=== PATIENT | male | born 1950 | race Caucasian/White ===

== ENCOUNTER → 2016-10-12 | Outpatient (CLI) | payer MEDICARE ==
--- NOTE | 2016-10-13 07:56 | XR ---
EXAMINATION TYPE: XR chest 2V DATE OF EXAM: 10/12/2016 10:58 AM COMPARISON: 10/05/2010 HISTORY: Cough FINDINGS: The lungs are clear and there is no pneumothorax, pleural effusion, or focal pneumonia. Hyperinflati on suggests COPD. Postsurgical change overlying the cervical spine. Hypertrophic change of the spine noted. Arthropathy of the shoulders. IMPRESSION: 1. No acute process.
== END | disposition home or self-care (01) ==
LOC: RADXRYALE 10:29
PROVIDERS: ATTEND Physician Assistant Medical
DX: R05 Cough (principal)
CPT/HCPCS: 71020

== ENCOUNTER → 2016-10-18 | Outpatient (CLI) | payer MEDICARE ==
--- NOTE | 2016-10-18 13:05 | MR ---
EXAMINATION TYPE: MR cervical spine wo/w con DATE OF EXAM: 10/18/2016 11:16 AM COMPARISON: Prior MR cervical spine dated 17 January 2014 HISTORY: Neck pain, M54.2, M50.3 TECHNIQUE: Multiplanar, multisequence images of the cervical spine were acquired utilizing 19 mL intravenous Mul tiHance gadolinium contrast. Diffusion weighted imaging was performed. C2-C3: No evidence for degenerative disc disease. No disc bulge/herniation or protrusion. No Canal stenosis. Foramina are patent bilaterally. C3-C4: No evidence for degenerative disc disease. No disc bulge/herniation or protrusion. No Canal stenosis. Foramina are patent bilaterally. C4-C5: Bilateral foraminal encroachment due to lateral extension endplate disc complex as on prior ex am. Posterior circumferential endplate disc complex extension causes minimal anterior mass effect on the thecal sac. C5-C6: Lateral extension of endplate disc complex causes some compromise of the right-sided neural fo ramen as on prior exam, correlate for right C6 radiculopathy. No other significant interval change. C6-C7: Stable appearance with a small central posterior disc herniation suspected, this may represent endplate bone formation rather than disc herniation may contact the anterior cervical cord. No signi ficant central canal stenosis. C7-T1: Broad-based posterior disc bulge causes minimal anterior mass effect on the thecal sac. No sig nificant central canal stenosis. Patient is status post anterior cervical fusion and discectomy as previously described at C5-C7. [place] llic susceptibility artifact is present. Disc spaces are stable. There may be a spinal curvature in t he thoracic spine. Cervical spinal cord is of normal signal. Craniovertebral junction relationships are within normal limits. IMPRESSION: Essentially stable exam. Multilevel foraminal encroachment. Central disc herniation C6-7. Postop arrington ges.
== END | disposition home or self-care (01) ==
LOC: RADMRIMAIN 10:36
PROVIDERS: ATTEND Family Medicine
DX: M50.223 Other cervical disc displacement at C6-C7 level (principal)
CPT/HCPCS: 72156; A9577

== ENCOUNTER 2016-12-09 10:26 | Day surgery (SDC) | payer MEDICARE ==
[2016-12-07 08:23] VITALS: BMI 27.4
[~2016-12-09 10:26] MED LIST: LACTATED RINGERS 1,000 ML IV SCH; LIDOCAINE 1% 20 ML VIAL (10MG/ML) FOR IV START INTRADERMA PRN
[2016-12-09 11:53] VITALS: RESP 18; TEMP 97.9
[2016-12-09] MEDS ORDERED: PROPOFOL 10 MG/ML 20 ML VIAL IV ONE (12:18)
--- NOTE | 2016-12-09 12:50 | P.PCN ---
Date of Procedure: 12/09/16 Procedure(s) Performed: Procedure: Esophagogastroduodenoscopy and biopsy. Preoperative diagnosis: Dysphagia. Postoperative diagnosis: Mild gastritis and duodenitis with normal esophagus and with no findings to account for the patient's symptoms. Preparation and sedation: Was provided by anesthesia. Brief clinical history: The patient is a 66-year-old male who has been troubled with dysphagia since 2005. He apparently started to have issues after his neck surgery with plate placement around that time. To this day, he reports feeling closure up sensation in his esophagus around 3 times each week while eating solid food and he has to bring the food back up. Apparently, this has been getting worse over the years. There is no weight loss or other alarm symptoms. An MRI in October of this year showed bone spurs. He does have history of heartburns but he has no reflux or regurgitation symptoms or chest pains. This evaluation is to assess for complicated reflux disease or other pathology. Procedure: With the patient on his left lateral decubitus position and after informed consent and adequate sedation, I passed the Olympus-GIF 160 video upper endoscope through the cricopharyngeus down the esophagus. GE junction was around 42-43 cm from the incisors and there was no definite hiatal hernia. The esophagus did not show any obvious erosions, ulcers, strictures or Dugna' s esophagus. There was no evidence of extrinsic compression on the esophagus. The endoscope was then passed into the stomach which was insufflated with air and inspected in detail including the retroflex view in the cardia. Finally the endoscope was passed through the pylorus into the duodenum. Pyloric channel did not show any ulcers. Duodenal bulb, post bulbar area and descending duodenum as well as the antrum showed mottling, erythema and some friability consistent with mild gastritis and duodenitis. Because of his symptoms, I obtained multiple biopsies from the duodenum, antrum and esophagus then the endoscope was withdrawn. The patient tolerated the procedure well. Plan: I discussed the findings with the patient and I reassured him. This possibility that we could be dealing with a motility disorder as opposed to inflammatory disease of the esophagus or strictures. Will await biopsy results and make further recommendations. I will keep you updated on his progress.
[2016-12-09 13:03] VITALS: BP 124/74; PULSE 61
== END 2016-12-09 13:27 | disposition home or self-care (01) ==
LOC: ORWHC2ENDO 10:26
DX: K29.70 Gastritis, unspecified, without bleeding (principal); K29.80 Duodenitis without bleeding; J45.909 Unspecified asthma, uncomplicated; E07.9 Disorder of thyroid, unspecified; Z79.899 Other long term (current) drug therapy
CPT/HCPCS: 43239; 88305; 88342; J2704

== ENCOUNTER → 2017-04-07 | Outpatient (CLI) | payer MEDICARE ==
--- NOTE | 2017-04-07 23:20 | MR ---
EXAMINATION TYPE: MR lumbar spine wo/w con DATE OF EXAM: 04/07/2017 COMPARISON: 02/20/2014 HISTORY: 66-year-old male low back pain. Technique: Multiplanar, multisequence images of the lumbar spine were obtained before and after admin istration of 20 mL intravenous MultiHance gadolinium contrast. FINDINGS: Postsurgical changes of L4-L5 posterior and interbody fusion. These fusion changes are new from 2013 with removal of previous posterior fusion hardware at L5-S1. The interbody device remains at L5- S1 as dated the stable grade 1 anterolisthesis. Corresponding laminectomies with a dorsal decompression of the spinal canal at these levels. Conus medullaris is normal. No suspicious bone marrow replacement. There is trace grade 1 retrolisthesis at L3-L4 above the fusion, new from prior exam. Multilevel degenerative disc disease has progressed from 2014 with a variable disc desiccation and mi ld disc interspace narrowing. Ligamentum flavum thickening and facet arthropathy especially above the fusion at L3-L4 also progress ed. At T12-L1, minimal bulging disc and facet degenerative change. No significant spinal canal stenosis. Minimal inferior left neuroforaminal narrowing. At L1-L2, mild posterior disc bulge minimally impressing on the ventral thecal sac. No significant sp inal canal or neuroforaminal stenosis. At L2-L3, there is mild facet degenerative change and mild bulging disc changes result in mild right neuroforaminal stenosis without spinal canal stenosis. Changes have increased from prior exam. At L3-L4, there is posterior disc bulge with a facet arthropathy, increased from 2014. There is incre asing, now moderate bilateral neuroforaminal stenosis. No spinal canal stenosis. At the fused L4-L5 level, there is continued moderate right greater than left neuroforaminal stenosis . No spinal canal stenosis. At the fused L5-S1 level, there is stable grade 1 anterolisthesis causing similar narrowing of the ri ght greater than left neural foramen. No spinal canal stenosis. No abnormal enhancement seen within the spinal canal. No prevertebral or paravertebral soft tissue abnormality seen. IMPRESSION: 1. As compared to 2013, there has been extension of posterior and interbody fusion now at L4-L5 with removal of previous S1 posterior hardware. There is stable grade 1 anterolisthesis at the fused L5-S1 level. Corresponding laminectomies. 2. Progressive multilevel degenerative disc disease as compared to 2014. 3. Degenerative changes are more pronounced above the fusion at L3-L4 where there is also progressive facet arthropathy and new grade 1 retrolisthesis. This results in new moderate bilateral neuroforami nal stenosis. No canal compromise. 4. Similar moderate neuroforaminal narrowing at L4-L5 and L5-S1.
== END | disposition home or self-care (01) ==
LOC: RADMRIMAIN 15:03
PROVIDERS: ATTEND Orthopaedic Surgery
DX: M99.73 Connective tissue and disc stenosis of intervertebral foramina of lumbar region (principal); M43.17 Spondylolisthesis, lumbosacral region; M51.36 Other intervertebral disc degeneration, lumbar region; M47.816 Spondylosis without myelopathy or radiculopathy, lumbar region; Z98.1 Arthrodesis status
CPT/HCPCS: 72158; A9577

== ENCOUNTER → 2018-07-19 | Outpatient (CLI) | payer MEDICARE ==
--- NOTE | 2018-07-19 15:20 | XR ---
EXAMINATION TYPE: XR chest 2V DATE OF EXAM: 07/19/2018 COMPARISON: Prior chest x-ray 10/12/[address] 02/20/2014 HISTORY: Shortness of breath TECHNIQUE: Frontal and lateral views of the chest are obtained. FINDINGS: Prominent lung volume may be indicative of underlying COPD. Postop change again noted in t he cervical spine. Suspect prior surgery to the distal right clavicle, stable. No pneumothorax or ple ural effusion. There is some prominence of interstitium. The heart is small. Pulmonary vascularity an d gunnar not significantly changed. Blunting of the costophrenic angles may be due to hyperinflation. N o evident airspace disease. IMPRESSION: No acute cardiopulmonary process. Emphysema, interstitial lung disease
== END ==
LOC: RADXRYALE 14:45
PROVIDERS: ATTEND Physician Assistant Medical
DX: J43.9 Emphysema, unspecified (principal); J84.9 Interstitial pulmonary disease, unspecified
CPT/HCPCS: 71046

== ENCOUNTER → 2018-08-18 | Outpatient (CLI) | payer MEDICARE ==
--- NOTE | 2018-08-18 14:56 | CT ---
EXAMINATION TYPE: CT sinus wo con DATE OF EXAM: 08/18/2018 COMPARISON: None HISTORY: Headache, nasal congestion, chronic sinusitis CT DLP: [address] of the paranasal sinuses was performed in the axial and coronal planes. Bone and soft tissue settings are submitted. The paranasal sinuses demonstrate normal aeration and development. The paranasal sinuses are free of mucosal thickening or air fluid level. The osteal meatal units are patent bilaterally. The nasal septum is midline. No bony destructive changes are seen within the field of view. IMPRESSION: Normal unenhanced CT of the paranasal sinuses.
== END ==
LOC: RADCTMAIN 13:11
PROVIDERS: ATTEND Family Medicine
DX: J32.9 Chronic sinusitis, unspecified (principal); R09.81 Nasal congestion
CPT/HCPCS: 70486

== ENCOUNTER → 2019-02-13 | Outpatient (CLI) | payer MEDICARE ==
--- NOTE | 2019-02-13 16:59 | US ---
EXAMINATION TYPE: US thyroid st tissue head/neck DATE OF EXAM: 02/13/2019 COMPARISON: NONE CLINICAL HISTORY: E03.9 HYPOTHYROIDISM. Patient states he has been on thyroid medication x15+ years GLAND SIZE: Right Lobe: 1.8 x 0.8 x 1.0 cm Overall Parenchyma: heterogenous Left Lobe: 2.6 x 1.0 x 0.9 cm Overall Parenchyma: heterogeneous Isthmus Thickness: 0.3 cm NODULES RIGHT: # of nodules measured on right: 0 LEFT: # of nodules measured on left: 0 ISTHMUS: # of nodules measured in the isthmus: 0 Very difficult and limited exam due to small thyroid size. Bilateral neck scanned, no evidence of lymphadenopathy. IMPRESSION: Diffusely heterogenous atrophic thyroid gland there may relate to exogenous hormone replacement or ch ronic thyroiditis. No discrete measurable nodule.
== END | disposition home or self-care (01) ==
LOC: RADUSWWP 16:13
PROVIDERS: ATTEND Family Medicine
DX: E03.4 Atrophy of thyroid (acquired) (principal); E03.9 Hypothyroidism, unspecified
CPT/HCPCS: 76536

== ENCOUNTER → 2020-06-30 | Outpatient (CLI) | payer MEDICARE ==
--- NOTE | 2020-06-30 16:00 | US ---
EXAMINATION TYPE: US duplex aorta DATE OF EXAM: 06/30/2020 COMPARISON: NONE CLINICAL HISTORY: F17.210 Nicotine dependence. Smoker. No family hx of AAA. No HTN. EXAM MEASUREMENTS: Abdominal Aorta: Proximal: 1.9 x 2.1 cm Mid: 1.6 x 1.9 cm Distal: 1.5 x 1.9 cm Bifurcation: Right- 1.1 x 1.0 cm Left- 1.2 x 1.0 cm Slight bulge visualized in distal Aorta= 3.3 x 2.3 x 2.1 cm IMPRESSION: 1. Minimal fusiform prominence of the distal abdominal aorta with an AP diameter of 2.1 cm.
== END | disposition home or self-care (01) ==
LOC: RADUSWWP 07:39
PROVIDERS: ATTEND Physician Assistant Medical
DX: Z00.01 Encounter for general adult medical examination with abnormal findings (principal); F17.210 Nicotine dependence, cigarettes, uncomplicated
CPT/HCPCS: 93979

== ENCOUNTER 2021-07-03 06:33 | Inpatient (IN) | payer MEDICARE ==
[2021-07-03] MEDS ORDERED: MORPHINE SULFATE 4 MG/ML SYRINGE IV STA (06:47)
[2021-07-03] MEDS ORDERED: SODIUM CHLORIDE 0.9% 1,000 ML IV STA (06:47)
[2021-07-03] MEDS ORDERED: ONDANSETRON 4 MG/2 ML VIAL IVP STA (06:49)
[2021-07-03 07:18] LABS: Basophils % (A) 0 %; Eosinophils # (A) 0.2 k/uL (0-0.7); Eosinophils % (A) 1 %; HCT 46.9 % (39.0-53.0); HGB 16.3 gm/dL (13.0-17.5); Lymphocytes # (A) 1.5 k/uL (1.0-4.8); Lymphocytes % (A) 8 %; MCH 32.8 pg (25.0-35.0); MCHC 34.7 g/dL (31.0-37.0); MCV 94.4 fL (80.0-100.0); Mean Platelet Volume 7.1; Monocytes # (A) 0.9 k/uL (0-1.0); Monocytes % (A) 5 %; Neutrophils # (A) 16.2 k/uL (1.3-7.7); Neutrophils % (A) 85 %; Platelet Count 353 k/uL (150-450); RBC 4.96 m/uL (4.30-5.90); RDW 12.8 % (11.5-15.5)
[2021-07-03 07:42] LABS: ALT 18 U/L (4-49); AST 24 U/L (17-59); African American GFR (CKD) >90 (>60 ml/min/1.73 sqM); Albumin 4.2 g/dL (3.5-5.0); Alkaline Phosphatase 88 U/L (38-126); Anion Gap 8 mmol/L; Blood Urea Nitrogen 14 mg/dL (9-20); Calcium 9.4 mg/dL (8.4-10.2); Carbon Dioxide 30 mmol/L (22-30); Chloride 90 mmol/L (98-107); Glucose 134 mg/dL (74-99); Non-African American GFR(CKD) >90 (>60 ml/min/1.73 sqM); Sodium 128 mmol/L (137-145); Total Bilirubin 0.6 mg/dL (0.2-1.3); Total Protein 7.4 g/dL (6.3-8.2)
--- NOTE | 2021-07-03 07:49 | ED ---
Back Pain HPI - General Chief Complaint: Back Pain/Injury Stated Complaint: Back Pain Time Seen by Provider: 07/03/21 06:40 Source: patient, EMS, RN notes reviewed Limitations: no limitations - History of Present Illness Initial Comments: Patient is a 71-year-old male that presents to emergency department via EMS complaining of increased back pain. He notes he does have a extensive history of back surgeries and back pain. He notes that he was packing up boxes and moving stuff on Tuesday when he felt a snap/pop in his back with increased pain. He notes that he does have chronic radicular symptoms on his left leg but they appear to be worse today. He denied any saddle anesthesia bladder or bowel incontinence retention. He noted that he is having some epigastric pain that radiated to his chest and felt his chest was maryann. He denied any aggravating or alleviating factors for his complaints at this time. He notes he does take [place] 7.5 at home and they have not been helping. He denied any shortness of breath headache nausea vomiting diarrhea constipation fever fatigue chills. - Related Data Home Medications Medication Instructions Recorded Confirmed Levothyroxine Sodium [Synthroid] 137 mcg PO DAILY 12/07/16 12/07/16 Venlafaxine HCl [Effexor XR] 75 mg PO DAILY 12/07/16 12/07/16 Allergies Allergy/AdvReac Type Severity Reaction Status Date / Time No Known Allergies Allergy Verified 12/07/16 08:19 Review of Systems ROS Statement: Those systems with pertinent positive or pertinent negative responses have been documented in the HPI. ROS Other: All systems not noted in ROS Statement are negative. Past Medical History Past Medical History: Thyroid Disorder Additional Past Medical History / Comment(s): HX FX C5-C7 AND L4-L5 History of Any Multi-Drug Resistant Organisms: None Reported Past Surgical History: Back Surgery, Cholecystectomy, Orthopedic Surgery, Tonsillectomy Additional Past Surgical History / Comment(s): NECK SX X 6, BACK SX X 2. COLONOSCOPY. RT ROTATOR CUFF REPAIR. SINUS SX. LT TESTICLE REMOVED Past Anesthesia/Blood Transfusion Reactions: No Reported Reaction Past Psychological History: Anxiety, Depression Smoking Status: Current every day smoker Past Alcohol Use History: Rare Past Drug Use History: None Reported - Past Family History Mother Family Medical History: No Reported History General Exam Limitations: no limitations General appearance: alert, in no apparent distress Head exam: Present: atraumatic, normocephalic, normal inspection Eye exam: Present: normal appearance, PERRL, EOMI. Absent: scleral icterus, conjunctival injection, periorbital swelling ENT exam: Present: normal exam, mucous membranes moist Neck exam: Present: normal inspection Respiratory exam: Present: normal lung sounds bilaterally. Absent: respiratory distress, wheezes, rales, rhonchi, stridor Cardiovascular Exam: Present: regular rate, normal rhythm, normal heart sounds. Absent: systolic murmur, diastolic murmur, rubs, gallop, clicks GI/Abdominal exam: Present: soft, normal bowel sounds. Absent: distended, tenderness, guarding, rebound, rigid Extremities exam: Present: normal inspection, full ROM, normal capillary refill. Absent: tenderness, pedal edema, joint swelling, calf tenderness Neurological exam: Present: alert, oriented X3 Expanded Cerebellar function: Finger to Nose: Normal, Heel to [place]: Normal Motor strength exam: RUE: 5, LUE: 5, RLE: 5, LLE: 5 Psychiatric exam: Present: normal affect, normal mood Skin exam: Present: warm, dry, intact, normal color. Absent: rash Course Vital Signs 07/03/21 07/03/21 07/03/21 06:34 07:42 08:00 Temperature 98 F Pulse Rate 81 67 67 Respiratory 20 18 18 Rate Blood Pressure 190/111 173/100 O2 Sat by Pulse 97 95 95 Oximetry 07/03/21 08:38 Temperature Pulse Rate 74 Respiratory 18 Rate Blood Pressure 167/92 O2 Sat by Pulse 95 Oximetry Medical Decision Making - Medical Decision Making 8-year-old male complaining of low back pain and some chest pain that started on Tuesday. Labs, EKG, prepress stripper, x-ray of the chest, lumbar spine x-ray 4 mg of morphine, 4 mg of Zofran, 1 L normal saline ordered. Labs: White blood cells 19.0, sodium 128 chloride 90. Chest x-ray shows no cardiac point process, chronic emphysema. Lumbar spine x- ray shows no acute issues. Troponin 0.055, heparin started. Dr. Barillas was consulted and will accept the admit. Case discussed with Dr. aGmez, patient will be admitted. - Lab Data Result diagrams: 07/03/21 06:58 07/03/21 06:58 Lab Results 07/03/21 07/03/21 07/03/21 Range/Units 06:58 06:58 06:58 WBC 19.0 H (3.8-10.6) k/uL RBC 4.96 (4.30-5.90) m/uL Hgb 16.3 (13.0-17.5) gm/dL Hct 46.9 (39.0-53.0) % MCV 94.4 (80.0-100.0) fL MCH 32.8 (25.0-35.0) pg MCHC 34.7 (31.0-37.0) g/dL RDW 12.8 (11.5-15.5) % Plt Count 353 (150-450) k/uL MPV 7.1 Neutrophils % 85 % Lymphocytes % 8 % Monocytes % 5 % Eosinophils % 1 % Basophils % 0 % Neutrophils # 16.2 H (1.3-7.7) k/uL Lymphocytes # 1.5 (1.0-4.8) k/uL Monocytes # 0.9 (0-1.0) k/uL Eosinophils # 0.2 (0-0.7) k/uL Basophils # 0.0 (0-0.2) k/uL Sodium 128 L (137-145) mmol/L Potassium 4.0 (3.5-5.1) mmol/L Chloride 90 L (98-107) mmol/L Carbon Dioxide 30 (22-30) mmol/L Anion Gap 8 mmol/L BUN 14 (9-20) mg/dL Creatinine 0.65 L (0.66-1.25) mg/dL Est GFR (CKD-EPI)AfAm >90 (>60 ml/min/1.73 sqM) Est GFR (CKD-EPI)NonAf >90 (>60 ml/min/1.73 sqM) Glucose 134 H (74-99) mg/dL Calcium 9.4 (8.4-10.2) mg/dL Magnesium (1.6-2.3) mg/dL Total Bilirubin 0.6 (0.2-1.3) mg/dL AST 24 (17-59) U/L ALT 18 (4-49) U/L Alkaline Phosphatase 88 (38-126) U/L Troponin I 0.055 H* (0.000-0.034) ng/mL Total Protein 7.4 (6.3-8.2) g/dL Albumin 4.2 (3.5-5.0) g/dL Urine Color Urine Appearance (Clear) Urine pH (5.0-8.0) Ur Specific [place] (1.001-1.035) Urine Protein (Negative) Urine Glucose (UA) (Negative) Urine Ketones (Negative) Urine Blood (Negative) Urine Nitrite (Negative) Urine Bilirubin (Negative) Urine Urobilinogen (<2.0) mg/dL Ur Leukocyte Esterase (Negative) Urine RBC (0-5) /hpf Urine WBC (0-5) /hpf Amorphous Sediment (None) /hpf Urine Mucus (None) /hpf 07/03/21 07/03/21 Range/Units 06:58 08:06 WBC (3.8-10.6) k/uL RBC (4.30-5.90) m/uL Hgb (13.0-17.5) gm/dL Hct (39.0-53.0) % MCV (80.0-100.0) fL MCH (25.0-35.0) pg MCHC (31.0-37.0) g/dL RDW (11.5-15.5) % Plt Count (150-450) k/uL MPV Neutrophils % % Lymphocytes % % Monocytes % % Eosinophils % % Basophils % % Neutrophils # (1.3-7.7) k/uL Lymphocytes # (1.0-4.8) k/uL Monocytes # (0-1.0) k/uL Eosinophils # (0-0.7) k/uL Basophils # (0-0.2) k/uL Sodium (137-145) mmol/L Potassium (3.5-5.1) mmol/L Chloride (98-107) mmol/L Carbon Dioxide (22-30) mmol/L Anion Gap mmol/L BUN (9-20) mg/dL Creatinine (0.66-1.25) mg/dL Est GFR (CKD-EPI)AfAm (>60 ml/min/1.73 sqM) Est GFR (CKD-EPI)NonAf (>60 ml/min/1.73 sqM) Glucose (74-99) mg/dL Calcium (8.4-10.2) mg/dL Magnesium 1.7 (1.6-2.3) mg/dL Total Bilirubin (0.2-1.3) mg/dL AST (17-59) U/L ALT (4-49) U/L Alkaline Phosphatase (38-126) U/L Troponin I (0.000-0.034) ng/mL Total Protein (6.3-8.2) g/dL Albumin (3.5-5.0) g/dL Urine Color Light Yellow Urine Appearance Cloudy (Clear) Urine pH 7.0 (5.0-8.0) Ur Specific [place] 1.014 (1.001-1.035) Urine Protein Negative (Negative) Urine Glucose (UA) Negative (Negative) Urine Ketones Negative (Negative) Urine Blood Negative (Negative) Urine Nitrite Negative (Negative) Urine Bilirubin Negative (Negative) Urine Urobilinogen <2.0 (<2.0) mg/dL Ur Leukocyte Esterase Negative (Negative) Urine RBC 1 (0-5) /hpf Urine WBC 2 (0-5) /hpf Amorphous Sediment Few H (None) /hpf Urine Mucus Rare H (None) /hpf - EKG Data -: EKG Interpreted by Or EKG shows normal: sinus rhythm Rate: normal EKG Comments: Ventricular rate 71 bpm, SD interval 144 ms, QRS duration 84 ms, QTC 410 ms, PRT axes 91/88/83. Normal sinus rhythm, normal ECG. - Radiology Data Radiology results: report reviewed, image reviewed Lumbar spine x-ray: There are 5 lumbar type vertebral bodies redemonstrated. Posterior interpedicular rods and screws with artificial disc material is now present at L3-L4 level. Interval removal of L4-L5 posterior fusion hardware. There is persistent artificial disc material at L4-L5 and L5-S1 levels. Stable grade 1 anterior listhesis L5 on S1. Laminectomy defects with spinous process resection lower lumbar spine noted. There is mild distress narrowing posteriorly at L2-L3 level with moderate to severe anterior spurring redemonstrated. There is mild dissipates narrowing with moderate anterior spurring at L1-L2 level redundancy. Vertebral body heights are stable. Overlying cholecystectomy clips noted. Chest x-ray: No acute cardiopulmonary process. Emphysema. Interstitial lung disease. Disposition Clinical Impression: Non-STEMI (non-ST elevated myocardial infarction), Low back pain, Chest pain Disposition: ADMITTED IP TO THIS HOSP Condition: Stable Is patient prescribed a controlled substance at d/c from ED?: No Referrals: Efren Morgan DO [Primary Care Provider] - 1-2 days Time of Disposition: 08:53
--- NOTE | 2021-07-03 07:51 | XR ---
EXAMINATION TYPE: XR lumbar spine 2 or 3V DATE OF EXAM: 07/03/2021 CLINICAL HISTORY: Low back pain TECHNIQUE: Frontal and lateral images of the lumbar spine are obtained. COMPARISON: MRI lumbar spine 2017 FINDINGS: There are 5 lumbar type vertebral bodies redemonstrated. Posterior interpedicular rods and screws with artificial disc material is now present at L3-L4 level. Interval removal of L4-L5 senior producer ior fusion hardware. There is persistent artificial disc material at L4-L5 and L5-S1 levels. Stable g rade 1 anterolisthesis L5 on S1. Laminectomy defects with spinous process resection lower lumbar spin e noted. There is mild disc space narrowing posteriorly at L2-L3 level with moderate to severe anteri or spurring redemonstrated. There is mild disc space narrowing with moderate anterior spurring at L1- L2 level redemonstrated. Vertebral body heights are stable. Overlying Cholecystectomy clips noted. IMPRESSION: As above. No acute findings are evident.
--- NOTE | 2021-07-03 07:55 | XR ---
EXAMINATION TYPE: XR chest 2V DATE OF EXAM: 07/03/2021 COMPARISON: Chest x-ray 07/19/2018 HISTORY: Pain TECHNIQUE: Frontal and lateral views of the chest are obtained. FINDINGS: There is no focal air space opacity, pleural effusion, or pneumothorax seen. The cardiac silhouette size is small. There are prominent lung volumes. Interstitium is mildly increased. There a re coronary artery calcifications. There is thoracic spondylosis. The osseous structures are intact, postop change noted to the cervical spine and likely the right distal clavicle. Surgical clip present at the level of the cardiophrenic angle on the right. IMPRESSION: No acute cardiopulmonary process. Emphysema, interstitial lung disease.
[2021-07-03] MEDS ORDERED: NITROGLYCERIN OINT 1 INCH/GM PACKET TOPICAL STA (08:05)
[2021-07-03] MEDS ORDERED: ASPIRIN 81 MG PO STA (08:05)
[2021-07-03] MEDS ORDERED: SODIUM CHLORIDE 0.9% 1,000 ML IV ONE (08:07)
[2021-07-03] MEDS ORDERED: MORPHINE SULFATE 4 MG/ML SYRINGE IVP STA (08:14)
[2021-07-03 08:19] LABS: Amorphous Sediment,Urine Few /hpf; Appearance,Urine Cloudy (Clear); Bilirubin,Urine Negative (Negative); Blood,Urine Negative (Negative); Color,Urine Light Yellow; Glucose,Urine (UA) Negative (Negative); Ketones,Urine Negative (Negative); Leukocyte Esterase,Urine Negative (Negative); Mucus,Urine Rare /hpf; Nitrite,Urine Negative (Negative); Protein,Urine Negative (Negative); RBC,Urine 1 /hpf (0-5); Specific Gravity,Urine 1.014 (1.001-1.035); Urobilinogen,Urine <2.0 mg/dL (<2.0); WBC,Urine 2 /hpf (0-5)
[2021-07-03] MEDS ORDERED: HEPARIN SODIUM 1,000 UN/ML (10ML VL) IV PRN (08:21)
[2021-07-03] MEDS ORDERED: HEPARIN SODIUM 1,000 UN/ML (10ML VL) IV ONE (08:21)
[2021-07-03] MEDS: HEPARIN SOD,PORK IN 0.45% NACL 25,000 UNIT in 0.45% NACL 1 250ML.BAG IV SCH (08:35)
[2021-07-03 08:53] LABS: INR 0.9 (<1.2); Partial Thromboplastin Time 23.6 sec (22.0-30.0); Prothrombin Time 9.7 sec (9.0-12.0)
[2021-07-03] MEDS ORDERED: NITROGLYCERIN SL TABS 0.4 MG TAB SUBLINGUAL PRN (08:54)
[2021-07-03] MEDS: SODIUM CHLORIDE 0.9% 1,000 ML IV SCH (11:27)
[2021-07-03] MEDS: busPIRone HCl 5 MG TAB PO SCH ×2 (11:30→20:36)
[2021-07-03] MEDS ORDERED: IPRATROPIUM-ALBUTEROL 3 ML NEB INHALATION PRN (13:06)
--- NOTE | 2021-07-03 13:09 | P.HPIM ---
History of Present Illness Patient very pleasant 71-year-old with known history of chronic low back pain and back surgeries in the past with scheduled MRI later this this month came in with severe by back pain radiating to both legs which is significant improved although patient started having chest pain in the retrosternal area mostly in the epigastric area pressure-like sensation along with diaphoresis without any shortness of breath or nausea. Patient pain was 5/10 in severity. Still has significant tenderness in the back in the left paraspinal area. Patient does have leukocytosis no fever at this time. Patient had mild elevation of troponins to 0.055 and 0.068, no significant EKG changes but patient is being admitted to rule out acute coronary syndromes because of chest pain along with diaphoresis and is a smoking history patient smokes about 5 cigarettes per day which she is trying to quit. Patient is hyponatremic as well. REVIEW OF SYSTEMS: CONSTITUTIONAL: No fever, no malaise, no fatigue. HEENT: No recent visual problems or hearing problems. Denied any sore throat. CARDIOVASCULAR: No, orthopnea, PND, no palpitations, no syncope. PULMONARY: No shortness of breath, no cough, no hemoptysis. GASTROINTESTINAL: No diarrhea, no nausea, no vomiting, no abdominal pain. NEUROLOGICAL: No headaches, no weakness, no numbness. HEMATOLOGICAL: Denies any bleeding or petechiae. GENITOURINARY: Denies any burning micturition, frequency, or urgency. MUSCULOSKELETAL/RHEUMATOLOGICAL: As mentioned in HPI ENDOCRINE: Denies any polyuria or polydipsia. The rest of the 14-point review of systems is negative. PHYSICAL EXAMINATION: GENERAL: The patient is alert and oriented x3, not in any acute distress. Well developed, well nourished. HEENT: Pupils are round and equally reacting to light. EOMI. No scleral icterus. No conjunctival pallor. Normocephalic, atraumatic. No pharyngeal erythema. No thyromegaly. CARDIOVASCULAR: S1 and S2 present. No murmurs, rubs, or gallops. PULMONARY: Breath sounds present bilaterally mild expiratory wheezing on exam ABDOMEN: Soft, nontender, nondistended, normoactive bowel sounds. No palpable organomegaly. MUSCULOSKELETAL: Significant paraspinal tenderness in the left lower lumbar area EXTREMITIES: No cyanosis, clubbing, or pedal edema. NEUROLOGICAL: Gross neurological examination did not reveal any focal deficits. SKIN: No rashes. Assessment and plan -Chest pain with mild elevation of troponins: Low possibility of type I non-ST elevation myocardial infarction, cardiology will evaluate the patient patient is presently on heparin which will be continued -Chronic low back pain with leukocytosis and a significant paraspinal tenderness I do have concern about infection or epidural abscess because of which are I'll go in and get an MRI with contrast to rule out any epidural abscess. -Hyponatremia appears to have hypervolemic hyponatremia continue with IV fluids -Hypothyroidism -Chronic low back pain. DVT prophylaxis: Patient is presently on IV heparin Past Medical History Past Medical History: Thyroid Disorder Additional Past Medical History / Comment(s): HX FX C5-C7 AND L4-L5 History of Any Multi-Drug Resistant Organisms: None Reported Past Surgical History: Back Surgery, Cholecystectomy, Orthopedic Surgery, Tonsillectomy Additional Past Surgical History / Comment(s): NECK SX X 6, BACK SX X 2. COLONOSCOPY. RT ROTATOR CUFF REPAIR. SINUS SX. LT TESTICLE REMOVED Past Anesthesia/Blood Transfusion Reactions: No Reported Reaction Past Psychological History: Anxiety, Depression Smoking Status: Current every day smoker Past Alcohol Use History: Rare Past Drug Use History: None Reported - Past Family History Mother Family Medical History: No Reported History Medications and Allergies Home Medications Medication Instructions Recorded Confirmed Type Levothyroxine Sodium [Synthroid] 137 mcg PO DAILY 12/07/16 07/03/21 History Venlafaxine HCl [Effexor XR] 75 mg PO TID 12/07/16 07/03/21 History Azithromycin [Zithromax] See Taper PO DIRECTED 07/03/21 07/03/21 History Cyclobenzaprine [Flexeril] 10 mg PO HS 07/03/21 07/03/21 History HYDROcodone/APAP 7.5-325MG [[place] 1 tab PO Q6HR PRN 07/03/21 07/03/21 History 7.5-325] Tamsulosin HCl [Flomax] 0.4 mg PO HS 07/03/21 07/03/21 History busPIRone HCL 15 mg PO BID 07/03/21 07/03/21 History predniSONE See Taper PO DIRECTED 07/03/21 07/03/21 History Allergies Allergy/AdvReac Type Severity Reaction Status Date / Time No Known Allergies Allergy Verified 12/07/16 08:19 Physical Exam Vitals: Vital Signs Temp Pulse Resp BP Pulse Ox 07/03/21 11:00 67 18 147/91 98 07/03/21 10:00 71 18 146/88 95 07/03/21 09:00 70 18 163/89 95 07/03/21 08:38 74 18 167/92 95 07/03/21 08:00 67 18 95 07/03/21 07:42 67 18 173/100 95 07/03/21 06:34 98 F 81 20 190/111 97 Intake and Output 07/02/21 07/03/21 07/03/21 22:59 06:59 14:59 Other: Weight 74.843 kg Results CBC & Chem 7: 07/03/21 06:58 07/03/21 06:58 Labs: Abnormal Lab Results - Last 24 Hours (Table) 07/03/21 07/03/21 07/03/21 Range/Units 06:58 06:58 06:58 WBC 19.0 H (3.8-10.6) k/uL Neutrophils # 16.2 H (1.3-7.7) k/uL Sodium 128 L (137-145) mmol/L Chloride 90 L (98-107) mmol/L Creatinine 0.65 L (0.66-1.25) mg/dL Glucose 134 H (74-99) mg/dL Troponin I 0.055 H* (0.000-0.034) ng/mL Amorphous Sediment (None) /hpf Urine Mucus (None) /hpf 07/03/21 07/03/21 Range/Units 08:06 10:30 WBC (3.8-10.6) k/uL Neutrophils # (1.3-7.7) k/uL Sodium (137-145) mmol/L Chloride (98-107) mmol/L Creatinine (0.66-1.25) mg/dL Glucose (74-99) mg/dL Troponin I 0.068 H* (0.000-0.034) ng/mL Amorphous Sediment Few H (None) /hpf Urine Mucus Rare H (None) /hpf
--- NOTE | 2021-07-03 14:48 | MR ---
EXAMINATION TYPE: MR lumbar spine wo/w con DATE OF EXAM: 07/03/2021 COMPARISON: Prior MRI lumbar spine April 07, 2017. Lumbar spine x-ray July 03, 2017 HISTORY: Sever back pain, epidural abscess. L3-S1 fused 2017. TECHNIQUE: Multiplanar, multisequence images of the lumbar spine is performed without and with IV contrast, util izing 7.5 mL intravenous Gadavist FINDINGS: Sagittal images of the lumbar spine show vertebral body heights to remain satisfactory. The re is stable grade 1 anterolisthesis L5 on S1. Artifact from artificial disc material L3-L4 through L 5-S1 levels is present. Moderate disc space narrowing L5-S1 level again seen. [id number] disc s pace narrowing and moderate anterior spurring L2-L3 level. Mild disc space narrowing with moderate an terior spurring L1-L2 level. Posterior successful decompression changes lower lumbar spine are redemo nstrated. The conus medullaris is stable in position and signal ending superior L1 level. The bone m arrow signal intensity is within normal limits. No suspicious postcontrast enhancement is seen. There is minimal large left paracentral/foraminal disc extrusion extending superiorly sagittal image 6 with 12 mm extension above the disc space effacing the anterolateral thecal sac and left lateral re cess and causing moderate anterior superior neural foraminal narrowing. Presumed encroachment on the central left L1 nerve. Finding also seen axial image 32. [id number] broad disc bulges with mild facet arthropathy L1-L2 and L2-L3 levels minimally effac ing anterior thecal sac. Patent bilateral neural foramina. Axial images L3-L4 through L5-S1 levels show posterior decompression changes. Artifact from disc mate rial and fusion are noted. Neural foramina felt patent. There is no paraspinal muscular atrophy site of surgery lower lumbar spine extending inferiorly. No s uspicious paraspinal fluid collection to suggest abscess. IMPRESSION: As above. No concerning paraspinal fluid collection to suggest abscess. New significant d isc herniation left T12-L1 level noted.
[2021-07-03] MEDS: HYDROcodone/APAP 7.5-325MG 1 EACH TAB PO PRN (14:56)
[2021-07-03] MEDS: VENLAFAXINE HCL ER 75 MG CAP PO SCH ×2 (16:36→20:36)
[2021-07-03] MEDS ORDERED: ONDANSETRON 4 MG/2 ML VIAL IVP PRN (17:03)
[2021-07-03] MEDS: HYDROmorphone 0.5 MG/0.5 ML SYRINGE IVP PRN ×2 (17:25→23:03)
[2021-07-03] MEDS: CYCLOBENZAPRINE 10 MG TAB PO SCH (20:36)
[2021-07-03] MEDS: TAMSULOSIN 0.4 MG CAP.ER.24H PO SCH (20:36)
[2021-07-04] MEDS: SODIUM CHLORIDE 0.9% 1,000 ML IV SCH ×2 (04:18→16:49)
[2021-07-04] MEDS: HYDROmorphone 0.5 MG/0.5 ML SYRINGE IVP PRN ×2 (04:18→11:49)
[2021-07-04] MEDS: LEVOTHYROXINE 137 MCG TAB PO SCH (06:22)
[2021-07-04] MEDS: METOPROLOL TARTRATE 25 MG TAB PO SCH ×2 (06:57→21:10)
[2021-07-04] MEDS ORDERED: ASPIRIN 325 MG TAB PO SCH (09:00)
[2021-07-04 09:03] LABS: Basophils % (A) 0 %; Eosinophils # (A) 0.3 k/uL (0-0.7); Eosinophils % (A) 2 %; HCT 47.9 % (39.0-53.0); HGB 16.1 gm/dL (13.0-17.5); Lymphocytes # (A) 2.2 k/uL (1.0-4.8); Lymphocytes % (A) 15 %; MCH 32.4 pg (25.0-35.0); MCHC 33.6 g/dL (31.0-37.0); MCV 96.2 fL (80.0-100.0); Mean Platelet Volume 7.4; Monocytes # (A) 0.8 k/uL (0-1.0); Monocytes % (A) 5 %; Neutrophils # (A) 11.6 k/uL (1.3-7.7); Neutrophils % (A) 77 %; Platelet Count 301 k/uL (150-450); RBC 4.98 m/uL (4.30-5.90); RDW 12.3 % (11.5-15.5)
[2021-07-04] MEDS: HEPARIN SOD,PORK IN 0.45% NACL 25,000 UNIT in 0.45% NACL 1 250ML.BAG IV SCH (09:14)
[2021-07-04] MEDS: HYDROcodone/APAP 7.5-325MG 1 EACH TAB PO PRN ×2 (09:17→21:07)
[2021-07-04] MEDS: ASPIRIN 81 MG PO SCH (09:18)
[2021-07-04] MEDS: busPIRone HCl 5 MG TAB PO SCH ×2 (09:18→21:08)
[2021-07-04] MEDS: ATORVASTATIN 40 MG TAB PO SCH (09:18)
[2021-07-04] MEDS: VENLAFAXINE HCL ER 75 MG CAP PO SCH ×3 (09:18→21:08)
[2021-07-04] MEDS: predniSONE 20 MG TAB PO SCH ×2 (09:18→21:08)
[2021-07-04 09:25] LABS: African American GFR (CKD) >90 (>60 ml/min/1.73 sqM); Anion Gap 6 mmol/L; Blood Urea Nitrogen 11 mg/dL (9-20); Calcium 9.4 mg/dL (8.4-10.2); Carbon Dioxide 28 mmol/L (22-30); Chloride 94 mmol/L (98-107); Glucose 114 mg/dL (74-99); Non-African American GFR(CKD) >90 (>60 ml/min/1.73 sqM); Potassium 4.5 mmol/L (3.5-5.1); Sodium 128 mmol/L (137-145)
--- NOTE | 2021-07-04 11:40 | CONS ---
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 He came into the hospital with complaints of chest tightness and a squeezing feeling. His complaint was that it was a dull ache, a sensation of squeezing in the chest. He also had back discomfort and there appears to be a new herniated disk in the T12-L1 area. He was apparently packing some boxes, moving some stuff on Tuesday when he felt a snap in his back and pain got worse. Then he noted some squeezing sensation in the chest and he came in with these symptoms. He has taken some pain medication. He has hypothyroidism and borderline hypertension. He smokes at least 5-6 cigarettes a day and consumes alcohol occasionally. At the time of my evaluation, he is resting comfortably. His two troponins are 0.06 and 0.06. He is asymptomatic for any chest pain at this time but complains of back discomfort. PAST MEDICAL HISTORY: 1. Hypothyroidism. 2. History of right shoulder surgery. 3. Cholecystectomy. 4. History of multiple previous back operations with herniated disk. He has no documented evidence of diabetes. He has borderline hypertension, takes no medications. MEDICATIONS: Medications at home include levothyroxine 137 mcg daily, hydrocodone, Flomax 0.4 mg and prednisone taper. ALLERGIES: NONE. PHYSICAL EXAMINATION: On examination, blood pressure is 150/80. Pulse rate is 65 per minute, regular. HEENT unremarkable. Fundus was not examined by me. Neck is supple. No JVD. I do not hear a carotid bruit. Heart exam reveals S1, S2 heard normally. No rub, murmur or gallop. Lungs are clear. Abdomen is soft, nontender. Lower extremities reveal palpable pulses. No edema. Central nervous system is normal. EKG revealed sinus mechanism, no acute changes. LAB DATA: Laboratory data suggest equivocal troponins. IMPRESSION: 1. Atypical chest pain. 2. Herniated thoracolumbar disk at T12, L1. 3. History of hypothyroidism. 4. Chest pain; seems atypical. 5. Borderline hypertension. RECOMMENDATIONS: I am recommending that we continue the heparin, add metoprolol and Lipitor and aspirin, obtain additional troponins, CBC, BMP and echocardiogram. Based on these findings I will make further recommendations. If he continues to have any further chest pain, consider cardiac catheterization; otherwise, a stress test down the road. I discussed my thoughts in detail with the patient. Troponin levels are equivocal. I will check an additional one. Thank you very much for the consult. RAULITO / STEFFEN: [id number] /
--- NOTE | 2021-07-04 12:43 | ECHOF ---
Referral Reason:chest pain; elevated troponins MEASUREMENTS -------- HEIGHT: 182.9 cm WEIGHT: 73.9 kg BP: RVIDd: 3.6 cm (< 3.3) IVSd: 1.1 cm (0.6 - 1.1) LVIDd: 4.4 cm (3.9 - 5.3) LVPWd: 0.9 cm (0.6 - 1.1) IVSs: 1.4 cm LVIDs: 3.4 cm LVPWs: 1.5 cm LA Diam: 3.1 cm (2.7 - 3.8) Ao Diam: 3.3 cm (2.0 - 3.7) AV Cusp: 1.6 cm (1.5 - 2.6) MV EXCURSION: 22.907 mm (> 18.000) MV EF SLOPE: 101 mm/s (70 - 150) EPSS: 1.6 cm MV E Luis Angel: 0.50 m/s MV DecT: 215 ms MV A Luis Angel: 0.72 m/s MV E/A Ratio: 0.70 RAP: 5.00 mmHg RVSP: 15.06 mmHg FINDINGS -------- Sinus rhythm. This was a technically good study. LV size, wall thickness and systolic function are normal, with an EF greater than 55%. The left andrew tricular size is normal. The right ventricle is normal in size. The left atrial size is normal. The right atrial size is normal. The aortic valve is trileaflet, and appears structurally normal. No aortic stenosis or regurgitation. Mild mitral regurgitation is present. Mild tricuspid regurgitation present. Right ventricular systolic pressure is normal at < 35 mmHg. There is no pulmonic regurgitation present. Echo free space represents a pericardial fat pad. CONCLUSIONS -------- 1. LV size, wall thickness and systolic function are normal, with an EF greater than 55%. 2. The left ventricular size is normal. 3. The right ventricle is normal in size. 4. The left atrial size is normal. 5. The right atrial size is normal. 6. The aortic valve is trileaflet, and appears structurally normal. No aortic stenosis or regurgitati on. 7. Mild mitral regurgitation is present. 8. Mild tricuspid regurgitation present. 9. Echo free space represents a pericardial fat pad. GLASSWARE MAKER: Cinthia Sheldon RDCS
--- NOTE | 2021-07-04 15:12 | P.PN ---
Subjective Patient very pleasant 71-year-old with known history of chronic low back pain and back surgeries in the past with scheduled MRI later this this month came in with severe by back pain radiating to both legs which is significant improved although patient started having chest pain in the retrosternal area mostly in the epigastric area pressure-like sensation along with diaphoresis without any shortness of breath or nausea. Patient pain was 5/10 in severity. Still has significant tenderness in the back in the left paraspinal area. Patient does have leukocytosis no fever at this time. Patient had mild elevation of troponins to 0.055 and 0.068, no significant EKG changes but patient is being admitted to rule out acute coronary syndromes because of chest pain along with diaphoresis and is a smoking history patient smokes about 5 cigarettes per day which she is trying to quit. Patient is hyponatremic as well. 07/04/2021 Patient's serum sodium remains low this can be SIADH from his pain patient is still having pain I did order an MRI which did show significant herniation disc at level of T12-L1 patient will be started on prednisone for inflammation, will also order urine osmolality, serum osmolality urine random sodium. Patient will be started on fluid restriction at this time patient was a valid by cardiology that according monitoring one more night and the echocardiogram was obtained because of which are pending at this time. Constitutional: Denied any fatigue denied any fever. Cardio vascular: denied any chest pain, palpitations Gastrointestinal denied any nausea vomiting Pulmonary: Denied any shortness of breath cough Neurologic denied any new focal deficits All inpatient medications were reviewed and appropriate changes in these medications as dictated in the interval history and assessment and plan. PHYSICAL EXAMINATION: GENERAL: The patient is alert and oriented x3, not in any acute distress. Well developed, well nourished. HEENT: Pupils are round and equally reacting to light. EOMI. No scleral icterus. No conjunctival pallor. Normocephalic, atraumatic. No pharyngeal erythema. No thyromegaly. CARDIOVASCULAR: S1 and S2 present. No murmurs, rubs, or gallops. PULMONARY: Breath sounds present bilaterally mild expiratory wheezing on exam ABDOMEN: Soft, nontender, nondistended, normoactive bowel sounds. No palpable organomegaly. MUSCULOSKELETAL: Significant paraspinal tenderness in the left lower lumbar area EXTREMITIES: No cyanosis, clubbing, or pedal edema. NEUROLOGICAL: Gross neurological examination did not reveal any focal deficits. SKIN: No rashes. Assessment and plan -Chest pain with mild elevation of troponins: Low possibility of type I non-ST elevation myocardial infarction, cardiology evaluated the patient monitoring and echo cardiac exam was ordered looking for any wall motion abnormalities -Chronic low back pain with leukocytosis and a significant paraspinal tenderness MRI didn't show any epidural abscess did show significant disc herniation. probably has severe discoloration with the paraspinal muscle spasm -Hyponatremia probably will be hyponatremia and SIADH from pain patient was started on fluid restriction -Leukocytosis reactive and is improving at this time can be related to steroids -Hypothyroidism -Chronic low back pain. DVT prophylaxis: Patient is presently on IV heparin Objective - Vital Signs Vital signs: Vital Signs Temp 97.7 F 07/04/21 11:41 Pulse 57 L 07/04/21 11:41 Resp 16 07/04/21 11:41 BP 158/80 07/04/21 11:41 Pulse Ox 92 L 07/04/21 11:41 Intake & Output 07/03/21 07/04/21 07/04/21 18:59 06:59 18:59 Intake Total 602.038 Balance 602.038 Weight 74.1 kg Intake: Intake, IV Titration 242.038 Amount Heparin Sod,Pork in 0.45% 242.038 NaCl 25,000 unit In 0.45 % NaCl 1 250ml.bag @ 12 UNITS/KG/HR 8.981 mls/hr IV .Q24H RADHA Rx#: [id number] Oral 360 Other: Voiding Method Toilet Toilet # Voids 1 - Labs CBC & Chem 7: 07/04/21 08:27 07/04/21 08:27 Labs: Abnormal Lab Results - Last 24 Hours (Table) 07/03/21 07/04/21 07/04/21 Range/Units 19:26 08:27 08:27 WBC (3.8-10.6) k/uL Neutrophils # (1.3-7.7) k/uL APTT 47.7 H 34.4 H (22.0-30.0) sec Sodium 128 L (137-145) mmol/L Chloride 94 L (98-107) mmol/L Creatinine 0.57 L (0.66-1.25) mg/dL Glucose 114 H (74-99) mg/dL Troponin I (0.000-0.034) ng/mL 07/04/21 07/04/21 Range/Units 08:27 08:27 WBC 15.0 H (3.8-10.6) k/uL Neutrophils # 11.6 H (1.3-7.7) k/uL APTT (22.0-30.0) sec Sodium (137-145) mmol/L Chloride (98-107) mmol/L Creatinine (0.66-1.25) mg/dL Glucose (74-99) mg/dL Troponin I 0.056 H* (0.000-0.034) ng/mL
[2021-07-04] MEDS ORDERED: DOCUSATE 100 MG CAP PO PRN (19:48)
[2021-07-04] MEDS: CYCLOBENZAPRINE 10 MG TAB PO SCH (21:08)
[2021-07-04] MEDS: TAMSULOSIN 0.4 MG CAP.ER.24H PO SCH (21:08)
[2021-07-04 21:53] LABS: Chol/HDL Ratio 2.43 Ratio; LDL Cholesterol,Calculated 69.5 mg/dL (0.0-131.0)
[2021-07-05] MEDS: SODIUM CHLORIDE 0.9% 1,000 ML IV SCH (04:52)
[2021-07-05 05:23] VITALS: RESP 18
[2021-07-05] MEDS: LEVOTHYROXINE 137 MCG TAB PO SCH (06:43)
[2021-07-05] MEDS: HYDROcodone/APAP 7.5-325MG 1 EACH TAB PO PRN (06:43)
[2021-07-05] MEDS ORDERED: HEPARIN SODIUM,PORCINE/PF 5,000 UNIT/0.5 ML SYRINGE SQ SCH (09:00)
[2021-07-05] MEDS: ATORVASTATIN 40 MG TAB PO SCH (09:07)
[2021-07-05] MEDS: METOPROLOL TARTRATE 25 MG TAB PO SCH (09:07)
[2021-07-05] MEDS: VENLAFAXINE HCL ER 75 MG CAP PO SCH (09:07)
[2021-07-05] MEDS: busPIRone HCl 5 MG TAB PO SCH (09:07)
[2021-07-05] MEDS: ASPIRIN 81 MG PO SCH (09:07)
[2021-07-05] MEDS: predniSONE 20 MG TAB PO SCH (09:08)
[2021-07-05 09:20] VITALS: BP 133/72; PULSE 65; TEMP 97.8
[2021-07-05 09:45] LABS: African American GFR (CKD) >90 (>60 ml/min/1.73 sqM); Anion Gap 9 mmol/L; Blood Urea Nitrogen 14 mg/dL (9-20); Calcium 9.7 mg/dL (8.4-10.2); Carbon Dioxide 27 mmol/L (22-30); Chloride 94 mmol/L (98-107); Glucose 127 mg/dL (74-99); Non-African American GFR(CKD) >90 (>60 ml/min/1.73 sqM); Potassium 4.7 mmol/L (3.5-5.1); Sodium 130 mmol/L (137-145)
--- NOTE | 2021-07-05 09:53 | P.DS ---
Providers Date of admission: 07/03/21 09:00 Attending physician: Bonilla Barillas Consults: 07/03/21 08:54 Consult Physician Urgent Consulting Provider: Tonny Brandt Reason/Comments: elevated troponin Do you want consulting provider notified?: Yes [facility] Course: Patient very pleasant 71-year-old with known history of chronic low back pain and back surgeries in the past with scheduled MRI later this this month came in with severe by back pain radiating to both legs which is significant improved although patient started having chest pain in the retrosternal area mostly in the epigastric area pressure-like sensation along with diaphoresis without any shortness of breath or nausea. Patient pain was 5/10 in severity. Still has significant tenderness in the back in the left paraspinal area. Patient does have leukocytosis no fever at this time. Patient had mild elevation of troponins to 0.055 and 0.068, no significant EKG changes but patient is being admitted to rule out acute coronary syndromes because of chest pain along with diaphoresis and is a smoking history patient smokes about 5 cigarettes per day which she is trying to quit. Patient is hyponatremic as well. 07/04/2021 Patient's serum sodium remains low this can be SIADH from his pain patient is still having pain I did order an MRI which did show significant herniation disc at level of T12-L1 patient will be started on prednisone for inflammation, will also order urine osmolality, serum osmolality urine random sodium. Patient will be started on fluid restriction at this time patient was a valid by cardiology that according monitoring one more night and the echocardiogram was obtained because of which are pending at this time. 07/05/2021 Patient's serum sodium did improve with fluid restriction, patient's urinary sodium is consistent with SIADH probably patient probably has SIADH from pain. Patient will be discharged today patient back pain is well controlled. Patient is cleared by cardiology. PHYSICAL EXAMINATION: GENERAL: The patient is alert and oriented x3, not in any acute distress. Well developed, well nourished. HEENT: Pupils are round and equally reacting to light. EOMI. No scleral icterus. No conjunctival pallor. Normocephalic, atraumatic. No pharyngeal erythema. No thyromegaly. CARDIOVASCULAR: S1 and S2 present. No murmurs, rubs, or gallops. PULMONARY: Breath sounds present bilaterally mild expiratory wheezing on exam ABDOMEN: Soft, nontender, nondistended, normoactive bowel sounds. No palpable organomegaly. MUSCULOSKELETAL: Significant paraspinal tenderness in the left lower lumbar area EXTREMITIES: No cyanosis, clubbing, or pedal edema. NEUROLOGICAL: Gross neurological examination did not reveal any focal deficits. SKIN: No rashes. Assessment and plan -Chest pain with mild elevation of troponins: Low possibility of type I non-ST elevation myocardial infarction, cardiology evaluated the patient monitoring and echo cardiac exam was was done which did not show any significant wall motion abnormalities -Chronic low back pain with leukocytosis and a significant paraspinal tenderness MRI didn't show any epidural abscess did show significant disc herniation. probably has paraspinal muscle spasm -Hyponatremia SIADH from pain. -Leukocytosis reactive and is improving at this time can be related to steroids -Hypothyroidism -Chronic low back pain. DVT prophylaxis: Patient is presently on IV heparin Patient Condition at Discharge: Stable Plan - Discharge Summary Discharge Rx Participant: No New Discharge Prescriptions: New Aspirin 81 mg PO DAILY #30 tab Atorvastatin [Lipitor] 40 mg PO DAILY #30 tab Metoprolol Tartrate [Lopressor] 25 mg PO BID #60 tab Nitroglycerin Sl Tabs [Nitrostat] 0.4 mg SUBLINGUAL Q5M PRN #30 tab PRN Reason: Chest Pain methylPREDNISolone Dose Pack [Medrol Dose Pack] 4 mg PO DIRECTED #1 packet Continue Levothyroxine Sodium [Synthroid] 137 mcg PO DAILY Venlafaxine HCl [Effexor XR] 75 mg PO TID Tamsulosin HCl [Flomax] 0.4 mg PO HS HYDROcodone/APAP 7.5-325MG [[place] 7.5-325] 1 tab PO Q6HR PRN PRN Reason: Pain Azithromycin [Zithromax] See Taper PO DIRECTED busPIRone HCL 15 mg PO BID Cyclobenzaprine [Flexeril] 10 mg PO HS Discontinued predniSONE See Taper PO DIRECTED Discharge Medication List Levothyroxine Sodium [Synthroid] 137 mcg PO DAILY 12/07/16 [History] Venlafaxine HCl [Effexor XR] 75 mg PO TID 12/07/16 [History] Azithromycin [Zithromax] See Taper PO DIRECTED 07/03/21 [History] Cyclobenzaprine [Flexeril] 10 mg PO HS 07/03/21 [History] HYDROcodone/APAP 7.5-325MG [[place] 7.5-325] 1 tab PO Q6HR PRN 07/03/21 [History] Tamsulosin HCl [Flomax] 0.4 mg PO HS 07/03/21 [History] busPIRone HCL 15 mg PO BID 07/03/21 [History] Aspirin 81 mg PO DAILY #30 tab 07/04/21 [Rx] Atorvastatin [Lipitor] 40 mg PO DAILY #30 tab 07/04/21 [Rx] Metoprolol Tartrate [Lopressor] 25 mg PO BID #60 tab 07/04/21 [Rx] Nitroglycerin Sl Tabs [Nitrostat] 0.4 mg SUBLINGUAL Q5M PRN #30 tab 07/04/21 [Rx] methylPREDNISolone Dose Pack [Medrol Dose Pack] 4 mg PO DIRECTED #1 packet 07/05/21 [Rx] Follow up Appointment(s)/Referral(s): Efren Morgan DO [Primary Care Provider] - 3 Days Ambulatory/Diagnostic Orders: Basic Metabolic Panel [LAB.AMB] Time Frame: 3 Days, Location: None Selected Discharge Disposition: HOME SELF-CARE
--- NOTE | 2021-07-05 11:51 | PN ---
PROGRESS NOTE Mr. Miles came in with very nondescript symptoms and also had a lot of back discomfort, has a herniated disk. Clinical picture does not suggest acute myocardial injury. I discussed this with the patient. He has no chest discomfort. He can be discharged on his current medical regimen and I will see him in the office and arrange for an outpatient stress test. Vitals are stable. No JVD. S1-S2 heard normally. Short systolic murmur. Clear lungs. Abdomen is soft, nontender. Lower extremities reveal normal pulses. No edema. Central nervous system is normal. The patient's back pain has improved. I will recommend that upon discharge I will see him in the office in a week and will arrange for a stress test. MMODL / IJN: [id number] /
== END 2021-07-05 10:19 | disposition home or self-care (01) | DRG 313 ==
LOC: EC 06:33 → 3SCARD 09:00
PROVIDERS: ADMIT Internal Medicine; ATTEND Internal Medicine
DX: R07.9 Chest pain, unspecified (principal); E22.2 Syndrome of inappropriate secretion of antidiuretic hormone; R79.89 Other specified abnormal findings of blood chemistry; M51.25 Other intervertebral disc displacement, thoracolumbar region; T38.0X5A Adverse effect of glucocorticoids and synthetic analogues, initial encounter; D72.829 Elevated white blood cell count, unspecified; E03.9 Hypothyroidism, unspecified; I10 Essential (primary) hypertension; Z20.822 Contact with and (suspected) exposure to COVID-19; E87.70 Fluid overload, unspecified; F17.210 Nicotine dependence, cigarettes, uncomplicated; F32.9 Major depressive disorder, single episode, unspecified; F41.9 Anxiety disorder, unspecified; G89.29 Other chronic pain; Z79.890 Hormone replacement therapy; Z90.79 Acquired absence of other genital organ(s); Z71.6 Tobacco abuse counseling; Z90.49 Acquired absence of other specified parts of digestive tract
CPT/HCPCS: 36415; 71046; 72100; 72158; 80048; 80053; 80061; 81001; 82570; 83735; 83930; 83935; 84443; 84484; 85025; 85610; 85730; 87040; 87635; 93005; 93306; 96361; 96374; 96375; 99285

== ENCOUNTER 2022-03-19 11:48 | Emergency (ER) | payer MEDICARE ==
[2022-03-19 11:52] VITALS: RESP 18
[2022-03-19 12:10] VITALS: PULSE 92
[2022-03-19] MEDS ORDERED: DIPH,PERTUS(ACELL)TETVAC-LF 0.5 ML VIAL IM ONE (12:38)
[2022-03-19] MEDS ORDERED: LIDOCAINE 1% INJ 10MG/ML (5 ML VIAL-PF) SQ ONE (12:52)
--- NOTE | 2022-03-19 13:01 | XR ---
Left hand HISTORY: Thumb laceration, trauma and pain 4 views of the left hand There is soft tissue defect noted at the first digit left hand. There is overlying dressing present. Underlying arthropathy changes are present. No fracture or dislocation. Nonstandard views. IMPRESSION: Soft tissue injury
--- NOTE | 2022-03-19 14:32 | ED ---
Wound/Laceration HPI - General Chief Complaint: Wound/Laceration Stated Complaint: Finger trama Time Seen by Provider: 03/19/22 12:42 Source: patient Mode of arrival: ambulatory Limitations: no limitations - History of Present Illness Initial Comments: Patient is a 71-year-old male who presents to the emergency department for evaluation of left thumb laceration. Patient cut his left thumb on a table saw today. Minimal pain. Denies numbness and tingling. Last tetanus unknown. - Related Data Home Medications Medication Instructions Recorded Confirmed Levothyroxine Sodium [Synthroid] 137 mcg PO DAILY 12/07/16 07/03/21 Venlafaxine HCl [Effexor XR] 75 mg PO TID 12/07/16 07/03/21 Azithromycin [Zithromax] See Taper PO DIRECTED 07/03/21 07/03/21 Cyclobenzaprine [Flexeril] 10 mg PO HS 07/03/21 07/03/21 HYDROcodone/APAP 7.5-325MG [Armbrust 1 tab PO Q6HR PRN 07/03/21 07/03/21 7.5-325] Tamsulosin HCl [Flomax] 0.4 mg PO HS 07/03/21 07/03/21 busPIRone HCL 15 mg PO BID 07/03/21 07/03/21 Previous Rx's Medication Instructions Recorded Aspirin 81 mg PO DAILY #30 tab 07/04/21 Atorvastatin [Lipitor] 40 mg PO DAILY #30 tab 07/04/21 Metoprolol Tartrate [Lopressor] 25 mg PO BID #60 tab 07/04/21 Nitroglycerin Sl Tabs [Nitrostat] 0.4 mg SUBLINGUAL Q5M PRN #30 tab 07/04/21 methylPREDNISolone Dose Pack 4 mg PO DIRECTED #1 packet 07/05/21 [Medrol Dose Pack] Cephalexin [Keflex] 250 mg PO Q6HR 7 Days #28 cap 03/19/22 Allergies Allergy/AdvReac Type Severity Reaction Status Date / Time No Known Allergies Allergy Verified 03/19/22 11:52 Review of Systems ROS Statement: Those systems with pertinent positive or pertinent negative responses have been documented in the HPI. ROS Other: All systems not noted in ROS Statement are negative. Past Medical History Past Medical History: Thyroid Disorder Additional Past Medical History / Comment(s): HX FX C5-C7 AND L4-L5 History of Any Multi-Drug Resistant Organisms: None Reported Past Surgical History: Back Surgery, Cholecystectomy, Orthopedic Surgery, Tonsillectomy Additional Past Surgical History / Comment(s): NECK SX X 6, BACK SX X 2. COLONOSCOPY. RT ROTATOR CUFF REPAIR. SINUS SX. LT TESTICLE REMOVED Past Anesthesia/Blood Transfusion Reactions: No Reported Reaction Past Psychological History: Anxiety, Depression Smoking Status: Current every day smoker Past Alcohol Use History: Rare Past Drug Use History: None Reported - Past Family History Mother Family Medical History: No Reported History General Exam Limitations: no limitations General appearance: alert, in no apparent distress Head exam: Present: atraumatic, normocephalic, normal inspection Eye exam: Present: normal appearance, PERRL, EOMI. Absent: scleral icterus, conjunctival injection, periorbital swelling Respiratory exam: Present: normal lung sounds bilaterally. Absent: respiratory distress, wheezes, rales, rhonchi, stridor Cardiovascular Exam: Present: regular rate, normal rhythm, normal heart sounds. Absent: systolic murmur, diastolic murmur, rubs, gallop, clicks Extremities exam: Present: full ROM, normal capillary refill, other (laceration over left thumb ) Neurological exam: Present: alert, oriented X3, CN II-XII intact Psychiatric exam: Present: normal affect, normal mood Skin exam: Present: warm, dry, normal color. Absent: rash Course Vital Signs 03/19/22 03/19/22 03/19/22 11:49 12:09 14:36 Temperature 98.2 F 98.0 F Pulse Rate 92 Respiratory 18 18 18 Rate Blood Pressure 128/75 130/85 O2 Sat by Pulse 96 Oximetry Procedures - Laceration Laceration #1 Consent Obtained: verbal consent Indication: laceration Site: other (left thumb) Description: irregular Depth: simple, single layer Anesthesia Technique: nerve block Pre-repair: wound explored, irrigated extensively, deep structures intact, wound margins revised Size of Sutures: 5-0 Technique: simple, interrupted Patient Tolerated Procedure: well, no complications Medical Decision Making - Medical Decision Making This is a 71-year-old male who presents for evaluation of left thumb laceration. Thorough history and examination were performed. The laceration is very irregular, approximately 6 cm. Neurovascularly intact. X-ray was obtained in triage which is negative for fracture or foreign body. The wound was explored. It is a decently deep laceration however deep structures are intact. Full range of motion. It was irrigated extensively. It is well approximated with 9 sutures. Patient tolerated the procedure well with no complications. Wound care education provided in detail. Patient states he does outdoor work in the yard often currently building some things for his house. Because of this I'll prophylactically treat patient with antibiotic. Patient to return for suture removal in 7-10 days. He is to follow-up with his primary care provider in one to 2 days. He verbalizes understanding and is agreeable to this plan. Dr. Avalos is my attending. Disposition Clinical Impression: Laceration Disposition: HOME SELF-CARE Condition: Good Additional Instructions: Please take antibiotic as directed. Keep wound clean and dry. You may wash with mild soap. Return for suture removal in 7-10 days. Return to the emergency department experience new, concerning, or worsening symptoms Prescriptions: Cephalexin [Keflex] 250 mg PO Q6HR 7 Days #28 cap Is patient prescribed a controlled substance at d/c from ED?: No Referrals: Efren Morgan DO [Primary Care Provider] - 1-2 days Time of Disposition: 14:32
[2022-03-19 14:41] VITALS: BP 130/85; TEMP 98
== END 2022-03-19 14:40 | disposition home or self-care (01) ==
LOC: EC 11:48
DX: S61.012A Laceration without foreign body of left thumb without damage to nail, initial encounter (principal); F17.200 Nicotine dependence, unspecified, uncomplicated; E07.9 Disorder of thyroid, unspecified; Z79.899 Other long term (current) drug therapy; Z23 Encounter for immunization; W26.8XXA Contact with other sharp object(s), not elsewhere classified, initial encounter
CPT/HCPCS: 73130; 90715; 12002; 90471; 99283; J2001

== ENCOUNTER → 2023-03-22 | Outpatient (CLI) | payer MEDICARE ==
[2023-03-22 10:59] LABS: African American GFR (CKD) >90 (>60 ml/min/1.73 sqM); Blood Urea Nitrogen 21 mg/dL (9-20); Non-African American GFR(CKD) >90 (>60 ml/min/1.73 sqM)
--- NOTE | 2023-03-22 11:32 | CT ---
EXAMINATION TYPE: CT chest w con CT DLP: 356.60 mGycm, Automated exposure control for dose reduction was used. DATE OF EXAM: 03/22/2023 11:23 AM COMPARISON: 05/18/2023 CLINICAL INDICATION:Male, 72 years old with history of R06.02 J44.9, chest pain and SOB. TECHNIQUE: Multiple axial images were obtained through the chest. Sagittal and coronal reformats were created for review. Contrast used:100 mL of Isovue 300 with IV Contrast Oral contrast used: none. FINDINGS: LUNGS/ PLEURA: Centrilobular and paraseptal emphysema changes predominantly in lung apices. Atelectas is changes in the lung bases and posterior lungs. Unchanged scarring in the left lung base near the d iaphragm series 3 image 45 compared to 2013. AIRWAY: Patent and unremarkable. HEART: Size within normal limits. MEDIASTINUM: No gross evidence of adenopathy. VASCULATURE: No aortic aneurysm. No filling defect within the pulmonary arterial vasculature to sugg est pulmonary embolus. MUSCULOSKELETAL: Mild disc degeneration changes are present throughout the thoracolumbar spine. Parti ally visualized fixation hardware in the upper spine. SOFT TISSUES/LYMPH NODES: Unremarkable. LOWER NECK: No significant findings. UPPER ABDOMEN: The gallbladder appears surgically absent. Splenule present within the pancreatic tail . IMPRESSION: 1. No evidence for acute process. 2. Moderate to severe emphysema changes. No evidence for focal consolidation.
== END | disposition home or self-care (01) ==
LOC: RADCTMAIN 10:09
PROVIDERS: ATTEND Family Medicine
DX: J43.9 Emphysema, unspecified (principal)
CPT/HCPCS: 82565; 84520; 71260; 36415; Q9967

== ENCOUNTER → 2023-11-14 | Outpatient (CLI) | payer MEDICARE ==
--- NOTE | 2023-11-15 08:11 | XR ---
EXAMINATION TYPE: XR chest 2V DATE OF EXAM: 11/14/2023 2:04 PM CLINICAL INDICATION:Male, 73 years old with history of R0602,R059 SOB,COUGH; [facility] COMPARISON: Chest radiographs from 07/03/2021 TECHNIQUE: XR chest 2V Frontal and lateral views of the chest. FINDINGS: Lungs/Pleura: There is no evidence of pleural effusion, focal consolidation, or pneumothorax. Pulmonary vascularity: Unremarkable. Heart/mediastinum: Cardiomediastinal silhouette is unremarkable. Musculoskeletal: No acute osseous pathology. There is fixation hardware in the lower cervical spine. Other findings: None IMPRESSION: No acute cardiopulmonary disease/process.
== END | disposition home or self-care (01) ==
LOC: RADXRYALE 13:54
PROVIDERS: ATTEND Physician Assistant Medical
DX: R06.02 Shortness of breath (principal); R05.9 Cough, unspecified
CPT/HCPCS: 71046

== ENCOUNTER 2024-03-08 11:17 | Day surgery (SDC) | payer MEDICARE ==
[2024-03-06 16:02] VITALS: BMI 26.2
[~2024-03-08 11:17] MED LIST changes: -LIDOCAINE 1% 20 ML VIAL (10MG/ML) FOR IV START INTRADERMA PRN; +ONDANSETRON 4 MG/2 ML VIAL IVP PRN
[2024-03-08 12:12] VITALS: RESP 16; TEMP 97
[2024-03-08] MEDS: IV FLUID CONTINUATION 1,000 ML IV ONE (12:13)
[2024-03-08] MEDS: LIDOCAINE 1% (10MG/ML) FOR IV START INTRADERMA PRN (12:13)
[2024-03-08] MEDS: LACTATED RINGERS 1,000 ML IV SCH (12:13)
[2024-03-08] MEDS: ATROPINE SULFATE 0.4 MG/ML 1 ML VIAL IM ONE (12:19)
[2024-03-08] MEDS ORDERED: fentaNYL (PF) 50 MCG/ML 2 ML AMP ONE (12:30)
[2024-03-08] MEDS ORDERED: PROPOFOL 10 MG/ML 20 ML VIAL IV ONE (12:30)
[2024-03-08] MEDS ORDERED: LIDOCAINE 2% (PF) 20 MG/ML 5 ML VIAL ONE (12:30)
[2024-03-08 13:18] VITALS: BP 112/73; PULSE 79
--- NOTE | 2024-03-08 19:19 | PCN ---
PROCEDURE NOTE PULMONARY/CRITICAL CARE PROCEDURE NOTE PROCEDURE PERFORMED: Bronchoscopy; airway examination; therapeutic lavage; bronchoalveolar lavage, right middle lobe. PREOPERATIVE DIAGNOSES: Chronic obstructive pulmonary disease exacerbation, retained secretions. POSTOPERATIVE DIAGNOSES: Chronic obstructive pulmonary disease exacerbation, retained secretions. MARKETING EXECUTIVE: Rody Inman. DESCRIPTION OF PROCEDURE: There was informed consent and universal timeout. The patient's procedure took place in the [facility], room #3. Anesthesia provided monitored anesthesia care (MAC). After the patient was adequately sedated and fully monitored, the bronchoscope was inserted through the right nostril. It passed through the right nasopharynx, into the oropharynx. The hypopharynx was identified and topicalized. The hypopharyngeal structures including anterior commissure, true cords, false cord, piriform sinuses right and left, vallecula, epiglottis, all appeared relatively normal. The glottic opening was topicalized with lidocaine. The bronchoscope was pushed through the glottic opening into the trachea. There were thick secretions noted throughout the trachea. They were suctioned. The tracheal charan was sharp. The right and left mainstem were topicalized. The right upper lobe and its 3 segments, right middle lobe and its 2 segments, right lower lobe and its 5 segments, left upper lobe proper and its 2 segments, lingula and its 2 segments, and left lower lobe and its 4 segments all had similar findings of moderate bronchitis. There were airway erythema and hyperemia. There was no dominant mass or tumor. There were thick secretions noted throughout. They were suctioned with some difficulty with the aid of saline lavage. All secretions were suctioned. The bronchoscope was wedged into the right middle lobe. A formal BAL took place. Thirty mL of fluid was recovered. It was turbid. The bronchoscope was then used to remove any additional secretions, with the aid of saline lavage. The patient tolerated the procedure well. There was no immediate complication. The bronchoscope was withdrawn, and the patient will be recovered. MMODL / IJN: [id number] /
[2024-03-08 23:00] LABS: Appearance,BF Cloudy (Clear); RBC, Body Fluid 50 /UL (0-2000)
[2024-03-12 09:24] LABS: Nucleated Cells, Body Fluid 480 /UL
== END 2024-03-08 13:49 | disposition home or self-care (01) ==
LOC: ORWHC2ENDO 11:17
PROVIDERS: ATTEND Internal Medicine Critical Care Medicine
DX: J44.1 Chronic obstructive pulmonary disease with (acute) exacerbation (principal); E03.9 Hypothyroidism, unspecified; F41.9 Anxiety disorder, unspecified; F32.A Depression, unspecified; Z79.890 Hormone replacement therapy; Z79.899 Other long term (current) drug therapy; Z85.51 Personal history of malignant neoplasm of bladder
CPT/HCPCS: 88108; 88305; 89050; 87070; 87205; 87116; 87102; 87206; 31624; J0461; J3010; J2704; J2001; 87496; 87498; 87502; 87529; 87634; 87635; 87798

== ENCOUNTER → 2024-04-12 | Outpatient (CLI) | payer MEDICARE ==
--- NOTE | 2024-04-12 16:16 | XR ---
EXAMINATION TYPE: XR tibia fibula LT DATE OF EXAM: 04/12/2024 3:36 PM CLINICAL INDICATION:Male, 73 years old with history of [id number] LT LOWER LEG PAIN; [facility] COMPARISON: None TECHNIQUE: XR tibia fibula LT; tibia/fibula was examined in AP and lateral projections. FINDINGS/IMPRESSION: 1. No evidence of acute fracture. 2. 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 Complete evaluation of the left femur are recommended with dedicated radiographs. 3. Left knee mild osteoarthrosis changes with joint space narrowing osteophyte formation.
== END | disposition home or self-care (01) ==
LOC: RADXRYALE 15:21
PROVIDERS: ATTEND Physician Assistant Medical
DX: M17.12 Unilateral primary osteoarthritis, left knee (principal)

== ENCOUNTER 2024-07-11 11:40 | Day surgery (SDC) | payer MEDICARE ==
[2024-07-09 13:16] VITALS: BMI 25.7
[~2024-07-11 11:40] MED LIST changes: +LIDOCAINE 1% (10MG/ML) FOR IV START INTRADERMA PRN; -ONDANSETRON 4 MG/2 ML VIAL IVP PRN
[2024-07-11] MEDS: IV FLUID CONTINUATION 1,000 ML IV ONE (11:58)
[2024-07-11 12:13] LABS: Glucose,Whole Blood 97 mg/dL (70-110)
[2024-07-11 12:14] VITALS: TEMP 97
[2024-07-11] MEDS: LACTATED RINGERS 1,000 ML IV SCH (12:15)
[2024-07-11] MEDS: ATROPINE SULFATE 0.4 MG/ML 1 ML VIAL IM ONE (12:16)
[2024-07-11] MEDS ORDERED: MIDAZOLAM 2 MG/2 ML VIAL ONE (12:36)
[2024-07-11] MEDS ORDERED: KETAMINE HCL IN 0.9 % NACL 50 MG/5 ML SYRINGE ONE (12:36)
[2024-07-11] MEDS ORDERED: LIDOCAINE 2% (PF) 20 MG/ML 5 ML VIAL ONE (12:36)
[2024-07-11] MEDS ORDERED: PROPOFOL 10 MG/ML 20 ML VIAL IV ONE (12:36)
[2024-07-11] MEDS: LIDOCAINE 2% INJ 20 MG/ML INTRATRACH ONE (12:45)
[2024-07-11 13:01] VITALS: BP 138/88; PULSE 94; RESP 20
--- NOTE | 2024-07-11 19:38 | PCN ---
PROCEDURE NOTE PROCEDURE PERFORMED: Bronchoscopy, airway examination, therapeutic lavage, BAL right middle lobe. PREOPERATIVE DIAGNOSES: COPD, retained secretions, acute bronchitis. POSTOPERATIVE DIAGNOSES: COPD, retained secretions, acute bronchitis. There was informed consent and universal timeout. The patient's procedure took place in a [facility] room #3. ANESTHESIA PROVIDED: Monitored anesthesia care. DESCRIPTION OF PROCEDURE: After the patient was adequately sedated and being fully monitored, the bronchoscope was inserted through the right nostril. It passed through the right nasopharynx into the oropharynx. It passed into the hypopharynx. The hypopharyngeal structures were all evaluated including anterior commissure, true cords, false cords, arytenoids, piriform sinuses, right and left, vallecula, and epiglottis. Everything appeared normal. The glottic opening was topicalized with lidocaine. The bronchoscope was pushed through the glottic opening into the trachea. There were thick secretions noted in the trachea. There was a moderate degree of inflammation within the trachea. There was a small amount of tracheomalacia noted. The tracheal charan was sharp. The right and left mainstem were topicalized. The right upper lobe and its 3 segments, right middle lobe and its 2 segments, right lower lobe and its 5 segments, left upper lobe and its 2 segments, lingula and its 2 segments, and left lower lobe and its 4 segments all had similar findings of diffuse airway inflammation, hyperemia, and erythema. There was some vascular prominence. There was no dominant mass or tumor. There was no bleeding. There were thick secretions noted throughout that were quite purulent looking. There were more so noted on the left side than on the right side. The bronchoscope was then wedged into the right middle lobe. We did a formal BAL. 30 mL of turbid fluid was recovered. It will be sent for analysis including cytology and microbiology. The patient tolerated the procedure well and will be recovered. MMODL / IJN: [id number] /
[2024-07-12 05:39] LABS: Appearance,BF Cloudy (Clear); RBC, Body Fluid 0 /UL (0-2000)
[2024-07-12 13:36] LABS: Nucleated Cells, Body Fluid 75 /UL
== END 2024-07-11 13:32 | disposition home or self-care (01) ==
LOC: ORWHC2ENDO 11:40
PROVIDERS: ATTEND Internal Medicine Critical Care Medicine
DX: J44.1 Chronic obstructive pulmonary disease with (acute) exacerbation
CPT/HCPCS: 31624; 87070; 87102; 87116; 87205; 87206; 87496; 87498; 87502; 87529; 87634; 87635; 87798; 88108; 88305; 89050